=== PATIENT | female | born 1960 | race Caucasian/White ===

== ENCOUNTER 2021-07-02 13:50 | Outpatient (RCR) | payer OTHER | END 2021-07-08 | disposition home or self-care (01) | LOC: WSOH | DX: M25.511 Pain in right shoulder (principal); K21.9 Gastro-esophageal reflux disease without esophagitis; M48.00 Spinal stenosis, site unspecified; Z90.710 Acquired absence of both cervix and uterus; Y99.0 Civilian activity done for income or pay ==

== ENCOUNTER 2021-07-20 14:54 | Outpatient (RCR) | payer OTHER | END 2021-07-20 15:30 | LOC: WSOH 14:54 | DX: Q74.0 Other congenital malformations of upper limb(s), including shoulder girdle (principal); M75.01 Adhesive capsulitis of right shoulder; S43.431A Superior glenoid labrum lesion of right shoulder, initial encounter; K21.9 Gastro-esophageal reflux disease without esophagitis; M48.00 Spinal stenosis, site unspecified; Z90.710 Acquired absence of both cervix and uterus; Z98.890 Other specified postprocedural states; Y99.0 Civilian activity done for income or pay ==